=== PATIENT | male | born 1980 | race Caucasian/White ===

== ENCOUNTER 2020-07-20 17:43 | Emergency (ER) | payer SELFPAY ==
[~2020-07-20] VITALS: Ht 175.3 cm; Wt 88.6 kg
[2020-07-20 17:56] VITALS: BP 133/85; TEMP 98.2
[2020-07-20] MEDS ORDERED: CEPHALEXIN500 M1 PO (18:44)
[2020-07-20 19:16] VITALS: PULSE 61
== END 2020-07-20 19:15 | disposition home or self-care (01) ==
LOC: COL.ER 17:43
DX: S61.012A Laceration without foreign body of left thumb without damage to nail, initial encounter (principal); W31.1XXA Contact with metalworking machines, initial encounter; Y99.0 Civilian activity done for income or pay